=== PATIENT | female | born 1980 | race Caucasian/White ===

== ENCOUNTER 2024-01-21 21:18 | Emergency (ER) | payer SELFPAY ==
[2024-01-21 22:11] LABS: Bilirubin 3+ (Negative); Blood, Urine 250 (Negative); Clarity Clear (Clear); Glucose, Urine (Dipstick) Normal (Negative); Ketone, Urine Negative (Negative); Leukocyte 500 (Negative); Nitrite Positive (Negative); Protein, Urine (Dipstick) 30 mg/dl (Neg-Trace)
[2024-01-21] MEDS ORDERED: Nitrofurantoin Monohyd/M-Cryst 100 MG CAP PO SCH (22:15)
[2024-01-21 22:18] LABS: Bacteria/HPF 2+ HPF (None Seen); CAUTI Indications for Culture Pelvic or flank pain; Urine Culture Reflex Yes Yes
== END 2024-01-21 22:27 | disposition home or self-care (01) ==
LOC: CSHERS 21:18
DX: N39.0 Urinary tract infection, site not specified (principal); F17.210 Nicotine dependence, cigarettes, uncomplicated
CPT/HCPCS: 81001; 87077; 87086; 99283